=== PATIENT | male | born 1955 | race Caucasian/White ===

== ENCOUNTER 2018-02-10 09:00 | Inpatient (IN) | payer OTHER ==
[2018-02-13] MEDS ORDERED: FAMOTIDINE 20MG TABLET PO ONE (06:00)
[2018-02-13] MEDS ORDERED: ACETAMINOPHEN 1,000 MG/100 ML BTL IV ONE (06:00)
[2018-02-13] MEDS ORDERED: MECLIZINE 25 MG TABLET PO ONE (06:00)
[2018-02-13] MEDS ORDERED: CELECOXIB 100 MG CAPSULE PO ONE (06:00)
[2018-02-13] MEDS ORDERED: METOCLOPRAMIDE 10 MG TABLET PO ONE (06:00)
[2018-02-13] MEDS ORDERED: VANCOMYCIN HCL 1,000 MG in DEXTROSE 5 % IN WATER 250 ML IVPB ONE ×2 (06:00)
[2018-02-13 07:42] LABS: ABO GROUP O; ANTIBODY SCREEN NEGATIVE (NEGATIVE); RH TYPE POSITIVE
[2018-02-13] MEDS ORDERED: ACETAMINOPHEN W/ CODEINE 300MG/30MG TABLET PO PRN ×2 (09:08)
[2018-02-13] MEDS ORDERED: TRAMADOL HCL 50 MG TABLET PO PRN ×2 (09:08)
[2018-02-13] MEDS ORDERED: ACETAMINOPHEN W/ CODEINE 300MG/60MG TABLET PO PRN ×2 (09:08)
[2018-02-13] MEDS ORDERED: NALOXONE 0.4 MG/1 ML VIAL IVP PRN (09:08)
[2018-02-13] MEDS ORDERED: HYDROMORPHONE HCL 2 MG/ML VIAL IM PRN ×2 (09:08)
[2018-02-13] MEDS ORDERED: ONDANSETRON HCL IV 4 MG/2 ML VIAL IVP PRN (09:08)
[2018-02-13] MEDS ORDERED: AL HYDROX/MAG HYDROX 30ML UD PO PRN (09:08)
[2018-02-13] MEDS ORDERED: HYDROCODONE/APAP 7.5/325MG TABLET PO PRN ×2 (09:08)
[2018-02-13] MEDS ORDERED: KETOROLAC 30 MG/ML VIAL IVP PRN ×2 (09:08)
[2018-02-13] MEDS ORDERED: DIPHENHYDRAMINE HCL 25 MG CAPSULE PO PRN (09:08)
[2018-02-13] MEDS ORDERED: ACETAMINOPHEN 325 MG TAB PO PRN (09:08)
[2018-02-13] MEDS ORDERED: PROMETHAZINE HCL 12.5 MG in 0.9 % SODIUM CHLORIDE 100ML 50 ML IVPB PRN (09:08)
[2018-02-13] MEDS ORDERED: METOCLOPRAMIDE HCL 10 MG/2 ML VIAL IVP PRN (09:08)
[2018-02-13] MEDS ORDERED: MAGNESIUM HYDROXIDE 30 ML UDC PO PRN (09:08)
[2018-02-13] MEDS ORDERED: BISACODYL 10 MG SUPP RC PRN (09:08)
[2018-02-13] MEDS ORDERED: ZOLPIDEM TARTRATE 5 MG TABLET PO PRN (09:08)
[2018-02-13] MEDS ORDERED: DEXTROSE 5 % AND 0.9 % NACL 1,000 ML IV PRN (10:30)
[2018-02-13] MEDS: FERROUS SULFATE 325 MG TAB PO SCH ×2 (11:22→21:40)
[2018-02-13] MEDS: DOCUSATE SODIUM 100 MG CAPSULE PO SCH ×2 (11:22→21:40)
[2018-02-13] MEDS ORDERED: VANCOMYCIN HCL 1 GM VIAL IVPB ONE ×2 (12:38→16:07)
[2018-02-13] MEDS ORDERED: BUPIVACAINE LIPOSOME 266MG/20ML VIAL IV ONE (12:38)
[2018-02-13] MEDS ORDERED: BUPIVACAINE 0.5% W/EPI MPF 30 ML VIAL IVP ONE ×2 (12:38→16:07)
[2018-02-13] MEDS ORDERED: TRANEXAMIC ACID 1,000 MG/10 ML ML IV ONE ×2 (12:38→16:07)
[2018-02-13] MEDS: HYDROCODONE/APAP 5/325MG TABLET PO PRN ×3 (14:39→21:41)
[2018-02-13] MEDS ORDERED: TAMSULOSIN HCL 0.4 MG CAP.ER.24H PO ONE (15:49)
[2018-02-13] MEDS ORDERED: KETOROLAC 30 MG/ML VIAL IVP ONE (16:07)
[2018-02-13] MEDS: NICOTINE GUM 2 MG PO PRN (18:24)
--- NOTE | 2018-02-13 18:32 | Rehab Evaluation ---
Patient Information - Patient Information Diagnosis: OA L hip, s/p BASILIO Ordered Treatment: PT Evaluate and Treat Status: Initial Evaluation Surgery: Yes (L BASILIO posterior approach) Date of Surgery: 02/13/18 History: Detail (Pt describes progressive degeneration of L hip that progressively limited his standing and walking tolerance over the past six years.) Past Med/Lc Hx Detail: Detail Past Medical/Surgical Hx: PAST MEDICAL/SURGICAL HISTORY Past Surgical History tonsils MOHS sx on nose c scope PMH - Respiratory Hx Respiratory Disorders No PMH - Cardiovascular Hx Cardiovascular Disorders Yes Exercise Tolerance Good Comment: hyperlipidemia PMH - Neuro Hx Neurological Disorders No PMH - GI Hx Gastrointestinal Disorders No PMH - Hx Genitourinary Disorders Yes Comment: urinary frequency PMH - Endocrine Hx Endocrine Disorders No PMH - Musculoskeletal Hx Musculoskeletal Disorders Yes Hx Arthritis Yes PMH - Psych Hx Psychiatric Problems No PMH - Hematology/Oncology Hx Hematology/Oncology Yes Disorders Hx Cancer Yes: BCC Premorbid Status: Detail (Pt was ambulating independently w/o assistive device and performing all usual ADL's independently.) Social History: Detail (Pt lives with his in a third floor apartment with 45 steps to access his apartment. He has a walk in shower and standard height toilet. He borrowed a walker; his will bring it in tomorrow for proper adjustment/fit. He anticipates going to inpatient rehabilitation at [facility].) Precautions: [place], Fall, Other (Posterior approach precautions for BASILIO) - Time With Patient Total Time Spent With Patient (Min): 40 Treatment Procedures: Detail (PT Evaluation) Subjective Information - Subjective Information Per Patient (Pt sleeping upon arrival, but awakened easily. Somewhat groggy; has sensation and active movement in LE's. Reporting abdominal pain, no hip pain.) Objective Data - Pain Pain Present: Yes Pain Intensity: 4 (abdominal) Pain Scale Used: Numeric (1 - 10) - Mental Status Patient Orientation: Oriented x3 - Visual Perception Appears within normal limits for therapeutic activities - ROM Not within normal limits (WNL in R LE and L knee and L ankle; L hip limited by BASILIO precautions) - Strength/Tone Not within normal limits (3-/5 strength in L hip; 4/5 in L knee and ankle; 4+/5 in R LE) - Coordination Appears within normal limits for therapeutic activities - Bed Mobility Needs Assist (Required assist for L LE to slide to edge of bed and to lower foot to floor in sitting, and to return L LE onto bed on return. Used bedrail and overhead trapeze to assist with rolling, scooting, and sitting up.) - Transfers Needs Assist (Stood rather impulsively from edge of bed, w/o physical assist, but required min assist of two to return to sitting after becoming faint. BP in sitting was 70/36. Required moderate assist of 2 to get back into bed and positioned appropriately.) - Balance Balance Sitting: Good Balance Standing: Fair (With front wheeled walker.) - Sensation Intact - Gait Detail (Ambulation not attempted at this visit due to postural hypotension.) - Special Tests Yes (Pt was experiencing bladder distention/retention and had been unable to void.) Therapy Assessment - Therapy Assessment Detail (Pt exhibits mobility impairments consistent with post operative condition. He is a good candidate for inpatient physical therapy to facilitate subsequent transfer for inpatient rehabilitation.) Patient Education - Patient Education Teaching Topic: Disease Process, Equipment Use, Precautions Response: Reinforcement Needed, Verbalize Understanding Teaching Method: Discussion Teaching Recipient: Patient, Significant Other Barriers To Learning: None Problem List - Problem List Physical Therapy Problem List: Detail (1. Requires assist for bed mobility. 2. Requires supervision for transfers. 3. Difficulty walking. 4. Impaired activity tolerance.) Goals - Goals Physical Therapy Goals: 1. Pt will require contact guard assist with bed mobility. 2. Pt will verbalized good understanding of posterior approach BASILIO precautions. 3. Pt will ambulate over household distances with front wheeled walker w/SBA. 4. Pt will be independent in beginning home exercise program. Prognosis - Prognosis Good Plan - Plan Physical Therapy Plan: Pt will be seen twice tomorrow to facilitate above goals , and again on Tuesday if needed to meet goals. Pt anticipates going to inpatient rehabilitation to complete his recovery.
--- NOTE | 2018-02-13 19:02 | Operative Note ---
DATE OF SURGERY: 02/13/18 PREOPERATIVE DIAGNOSIS: End-stage left hip dysplasia and arthrosis. POSTOPERATIVE DIAGNOSIS: End-stage left hip dysplasia and arthrosis. OPERATION: Left cemented total hip arthroplasty. Surgeon: Memo Juarez M.D. Anesthesia: Spinal. Anesthesia Provider: ALANA Randolph. COMPLICATIONS: None. Blood Loss: 100 mL. OPERATIVE FINDINGS: Severe bone on bone arthrosis, severe deformity of the femoral head, mushroom-shaped and lateral/superior subluxation of joint. Indications for Operation: This is a 61-year-old male who has had end-stage hip arthrosis, failed nonoperative treatment and multiple injections for several years and he wished to proceed with total hip replacement. I explained the risks and benefits of surgery in detail, diagnosis and procedures including but not limited to infection, nerve injury, vessel injury, persistent pain, numbness and tingling in his hip, periprosthetic fracture, need for resection, arthroplasty, should the components in fact loosen, nerve injury, vessel injury , blood clot, and need for further procedures, leg length discrepancy and the risk associated with anticoagulation medications and all of his questions were answered. Rehab and course were outlined and he agreed to proceed. PROCEDURE: The patient was brought into the OR, placed in the right lateral decubitus position. The left hip and lower extremity were prepped and draped in sterile fashion, was prepped using ChloraPrep and draped. An intraoperative time-out was performed. Next, a mini incision was marked over the posterolateral hip. It was infiltrated with 0.5% Marcaine with epi. Skin and subcutaneous tissue dissected down. Gluteal fascia split longitudinally. Subgluteal plane was bluntly dissected and identified the sciatica nerve, carefully protected and out of the way at all times and then partially released the gluteal femoral tendon insertion. Released the short external rotators, incised the capsule, and released it superiorly and inferiorly, and dislocated the femoral head. The femoral head was severely deformed; it was mushroom-shaped basically. There was no cartilage on it whatsoever and riding on the lateral anterior acetabular rim. Resected to appropriate height. Inserted the box osteotome, started reaming by hand working in 1 mm increments by power to a size 17. We stopped there and broached a 15. We broached a 16. We stopped there and it was a good fit in the proximal anatomy and planned on cementing. Next, attention was turned to the acetabulum. We released the capsule on the anteriorly and placed the inferior acetabular retractor. The Evelia retractor was placed anteriorly and then resected to the labrum and had extensive amount of synovitis in the medial inferior acetabulum. Next, started reaming working in 1 mm increments. We started a 44 mm reamer in 45 degrees inclination, 20 degrees anteversion and reamed up to a size 59 to catch up to our eroded anterior/superior acetabular rim. We trialed a size 60 and had good fit. Next, we irrigated and changed gloves and placed some bone graft centrally and around the periphery of the acetabulum and then impacted down the real 3-hole acetabular shell to help guide in 45 degrees inclination, 20 degrees anteversion until it was flushed to the medial wall. Next, we drilled the posterior, central, superior quadrant screw hole, inserted a 40 mm screw and had good purchase. Next, placed a trial liner and did a trial reduction. The best combination, range of motion ability with standard high offset 32 + 0 mm femoral head component. This allowed for flexion to 90, internal rotation to 80 with hips stable. Good abductor tension with distraction, symmetric leg lengths, and stability with extension, external and internal rotation. This is the size we used. Next, we changed gloves and brought in a clean sheet, copiously irrigated all bony surfaces and removed all trial components and then set the two screw caps at the central thread of the screw cap and impacted the real acetabular poly liner through the posterior/superior quadrant. We irrigated the femoral canal , placed a cement restrictor distally, injected the cement in 3rd generation cement technique. Removed the suction catheter, then impacted down the real femoral stem with the collar flushed to the calcar and the 15 degrees of anteversion and held there until the cement hardened. Once cement hardened, we irrigated, cleaned the trunnion, and impacted down the real femoral head, re-reduced the hip, final range of motion and stability were the same. Irrigated copiously, we next injected the deep tissues protecting the sciatica nerve with palpation. Injected the short external rotators, the periosteum working from deep to superficial layers, gluteal muscle proximally and distally with 0.5% Marcaine with epi, 2 gram of Tranexamic Acid, and Exparel mixture. Closed the gluteal fascia with a running #2 Quill suture. Closed the skin deep with 2-0 Vicryl and sterile dressing applied with ACTICOAT and temporary provisional dressing, ABDs, will be changed prior to discharge tomorrow. When he is discharged and he is going to [facility] and he will follow-up in two weeks. cc: Dr. Damien Wilkinson JOB NUMBER: [id number] MTDD
[2018-02-13] MEDS: VANCOMYCIN HCL 1,000 MG in DEXTROSE 5 % IN WATER 250 ML IVPB SCH ×2 (20:02)
[2018-02-13] MEDS: PATIENT OWN MED: ATORVASTATIN 10 MG PO SCH (22:00)
[2018-02-14] MEDS: HYDROCODONE/APAP 5/325MG TABLET PO PRN ×4 (04:58→21:10)
[2018-02-14] MEDS: VANCOMYCIN HCL 1,000 MG in DEXTROSE 5 % IN WATER 250 ML IVPB SCH ×4 (06:09→06:30)
[2018-02-14] MEDS: NICOTINE GUM 2 MG PO PRN ×2 (06:27→21:11)
[2018-02-14 06:34] LABS: HEMATOCRIT 30.2 % (42.0-52.0); HEMOGLOBIN 9.9 gm/dl (14.0-18.0)
--- NOTE | 2018-02-14 07:27 | RADIOLOGY REPORT ---
EXAM: AP LEFT HIP HISTORY: POSTOP LEFT BASILIO. TECHNIQUE: A single AP view of the left hip was obtained. Comparison: None. FINDINGS: The patient is postop left BASILIO. The components appear in good position in the AP projection. Air is seen in the soft tissues which is presumably postoperative in nature. IMPRESSION: POSTOP LEFT BASILIO WITH THE COMPONENTS APPEARING IN GOOD POSITION IN THE AP PROJECTION. JOB NUMBER: [id number] MTDD
--- NOTE | 2018-02-14 09:29 | Physical Therapy Tx Note ---
Physical Therapy Tx Note - Treatment Note Tolerated: Fair Total Time Spent With Patient: 20 Physical Therapy Tx Note: Detail (The patient was in bed when PT arrived. The patient reported his hip pain was level 4. The patient showed good understanding of BASILIO precautions. The patient acheived supine to sit with minimal PA to lift L LE. The patient complained of minimal lightheadness when sitting. The patient stood and transferred to chair with supervision for safety only. The patient felt increased lightheadness so ambulation was declined. The patient was lift up in chair and was experiencing minimal lightheadness. Call light, urinal and emesis basin were within reach. Nursing staff was notified that patient was in chair.) Physical Therapy Problem List: Detail (1. Requires assist for bed mobility. 2. Requires supervision for transfers. 3. Difficulty walking. 4. Impaired activity tolerance.) Physical Therapy Goals: 1. Pt will require contact guard assist with bed mobility. 2. Pt will verbalized good understanding of posterior approach BASILIO precautions. 3. Pt will ambulate over household distances with front wheeled walker w/SBA. 4. Pt will be independent in beginning home exercise program. Physical Therapy Plan: Pt will be seen twice tomorrow to facilitate above goals , and again on Tuesday if needed to meet goals. Pt anticipates going to inpatient rehabilitation to complete his recovery.
[2018-02-14] MEDS: CELECOXIB 100 MG CAPSULE PO SCH (10:05)
[2018-02-14] MEDS: FERROUS SULFATE 325 MG TAB PO SCH ×2 (10:05→21:09)
[2018-02-14] MEDS: RIVAROXABAN 10 MG TABLET PO SCH (10:05)
[2018-02-14] MEDS: DOCUSATE SODIUM 100 MG CAPSULE PO SCH ×2 (10:05→21:09)
--- NOTE | 2018-02-14 10:34 | Rehab Evaluation ---
Patient Information - Patient Information Diagnosis: OA L hip, s/p BASILIO Ordered Treatment: OT Evaluate and Treat Status: Initial Evaluation Surgery: Yes (L BASILIO posterior approach) Date of Surgery: 02/13/18 History: Detail (Pt describes progressive degeneration of L hip that progressively limited his standing and walking tolerance over the past six years.) Past Medical/Surgical Hx: PAST MEDICAL/SURGICAL HISTORY Past Surgical History tonsils MOHS sx on nose c scope PMH - Respiratory Hx Respiratory Disorders No PMH - Cardiovascular Hx Cardiovascular Disorders Yes Exercise Tolerance Good Comment: hyperlipidemia PMH - Neuro Hx Neurological Disorders No PMH - GI Hx Gastrointestinal Disorders No PMH - Hx Genitourinary Disorders Yes Comment: urinary frequency PMH - Endocrine Hx Endocrine Disorders No PMH - Musculoskeletal Hx Musculoskeletal Disorders Yes Hx Arthritis Yes PMH - Psych Hx Psychiatric Problems No PMH - Hematology/Oncology Hx Hematology/Oncology Yes Disorders Hx Cancer Yes: BCC Premorbid Status: Detail (Pt was ambulating independently w/o assistive device and performing all usual ADL's independently as well as assisting with IADLs.) Social History: Detail (Pt lives with his in a third floor apartment with 45 steps to access his apartment. He has a walk in shower and standard height toilet without grab bars. He plans to borrow a shower seat. He borrowed a walker; his will bring it in tomorrow for proper adjustment/fit. He anticipates going to inpatient rehabilitation at [facility] in [place]. He has a fixture maker, sock aid and long shoe horn.) Precautions: [place], Fall, Other (Posterior approach precautions for BASILIO) Subjective Information - Subjective Information Per Patient Objective Data - Pain Pain Present: Yes (11/17) - Mental Status Patient Orientation: Oriented x3 - Visual Perception Appears within normal limits for therapeutic activities (Pt wears glasses.) - ROM Within normal limits (UE AROM WNL) - Strength/Tone Within normal limits (UE strength WNL) - Coordination Appears within normal limits for therapeutic activities - Balance Balance Sitting: Good - Sensation Intact Problem List - Problem List Physical Therapy Problem List: Detail (1. Requires assist for bed mobility. 2. Requires supervision for transfers. 3. Difficulty walking. 4. Impaired activity tolerance.) Goals - Goals Physical Therapy Goals: 1. Pt will require contact guard assist with bed mobility. 2. Pt will verbalized good understanding of posterior approach BASILIO precautions. 3. Pt will ambulate over household distances with front wheeled walker w/SBA. 4. Pt will be independent in beginning home exercise program. Plan - Plan Physical Therapy Plan: Pt will be seen twice tomorrow to facilitate above goals , and again on Tuesday if needed to meet goals. Pt anticipates going to inpatient rehabilitation to complete his recovery.
--- NOTE | 2018-02-14 14:58 | Physical Therapy Tx Note ---
Physical Therapy Tx Note - Treatment Note Tolerated: Good Total Time Spent With Patient: 30 Physical Therapy Tx Note: Detail (The patient was seen in two short sessions today and lightheadness has steadily decreased. The patient was indpendent with supine to and from sit transfer. The patient ambulated with front wheeled walker , WBAT on the L LE a distance of 120. The patient was independent with BASILIO HEP including ankle pumps, gluteal sets, quad sets, hamstring sets, hip abduction supine, heel slides. The patient declined stairs this today. Will complete gait training on stairs tomorrow am.) Physical Therapy Problem List: Detail (1. Requires assist for bed mobility. 2. Requires supervision for transfers. 3. Difficulty walking. 4. Impaired activity tolerance.) Physical Therapy Goals: 1. Pt will require contact guard assist with bed mobility. 2. Pt will verbalized good understanding of posterior approach BASILIO precautions. 3. Pt will ambulate over household distances with front wheeled walker w/SBA. 4. Pt will be independent in beginning home exercise program. Physical Therapy Plan: Pt will be seen twice tomorrow to facilitate above goals , and again on Tuesday if needed to meet goals. Pt anticipates going to inpatient rehabilitation to complete his recovery.
[2018-02-14] MEDS: PATIENT OWN MED: ATORVASTATIN 10 MG PO SCH (21:13)
[2018-02-15] MEDS: HYDROCODONE/APAP 5/325MG TABLET PO PRN ×2 (05:02→08:51)
[2018-02-15 06:49] LABS: HEMATOCRIT 30.3 % (42.0-52.0); HEMOGLOBIN 9.9 gm/dl (14.0-18.0)
--- NOTE | 2018-02-15 08:50 | Physical Therapy Tx Note ---
Physical Therapy Tx Note - Treatment Note Tolerated: Good Total Time Spent With Patient: 15 Physical Therapy Tx Note: Detail (The patient was in bed when PT arrived. The patient ambulated 70 feet x 1 with front wheeled walker independently WBAT on the L LE. The patient ambulated on 3 steps with use of folded walker and one hand railing with supervision for safety using proper technique. All inpatient PT goals have been met. The patient is to go to Rehab.) Physical Therapy Problem List: Detail (1. Requires assist for bed mobility. 2. Requires supervision for transfers. 3. Difficulty walking. 4. Impaired activity tolerance.) Physical Therapy Goals: GOALS MET: 1. Pt will require contact guard assist with bed mobility. 2. Pt will verbalized good understanding of posterior approach BASILIO precautions. 3. Pt will ambulate over household distances with front wheeled walker w/SBA. 4. Pt will be independent in beginning home exercise program. Physical Therapy Plan: All inpatient PT goals have been met. Patient to go to Rehab.
[2018-02-15] MEDS ORDERED: PROPOFOL 10 MG/ML VIAL IV ONE (09:37)
[2018-02-15] MEDS ORDERED: MIDAZOLAM HCL 2MG/2ML VIAL IV ONE (09:37)
[2018-02-15] MEDS ORDERED: EPHEDRINE SULFATE 50 MG/ML ML IV ONE (09:37)
[2018-02-15] MEDS ORDERED: *PACU ONLY* KETAMINE HCL 10 MG/ML (20ML) VIAL IV ONE (09:37)
[2018-02-15] MEDS: RIVAROXABAN 10 MG TABLET PO SCH (11:21)
[2018-02-15] MEDS: FERROUS SULFATE 325 MG TAB PO SCH (11:21)
[2018-02-15] MEDS: CELECOXIB 100 MG CAPSULE PO SCH (11:21)
[2018-02-15] MEDS: DOCUSATE SODIUM 100 MG CAPSULE PO SCH (11:21)
--- NOTE | 2018-02-15 21:31 | RADIOLOGY REPORT ---
EXAM: CHEST 1 VIEW HISTORY: REHAB PLACEMENT, POST-OP BASILIO. TECHNIQUE: Single AP sitting upright view of the chest. COMPARISON: None. FINDINGS: Heart size at about the upper limits of normal, allowing for the AP positioning. No definite acute infiltrate is seen and no pleural effusion or pneumothorax evident. Mild lower thoracic curve to the right. Mild calcification of the aorta. IMPRESSION: HEART SIZE AT ABOUT THE UPPER LIMITS OF NORMAL. NO ACUTE INFILTRATE IDENTIFIED. JOB NUMBER: [id number] MTDD
== END 2018-02-15 12:38 | DRG 470 ==
LOC: MEDSURG 02-13 06:07
PROVIDERS: ADMIT Orthopaedic Surgery; ATTEND Orthopaedic Surgery
PROC: 0SRB069 Replacement of Left Hip Joint with Oxidized Zirconium on Polyethylene Synthetic Substitute, Cemented, Open Approach (ICD-10-PCS; principal; 2018-02-13 08:30)
DX: M16.12 Unilateral primary osteoarthritis, left hip (principal); Q65.89 Other specified congenital deformities of hip; E78.00 Pure hypercholesterolemia, unspecified
CPT/HCPCS: 71045; 85014; 85018; 86850; 86900; 86901; 94760; 97110; 97530; C1776; J1885; J7042; J7060